=== PATIENT | female | born 1960 | race Caucasian/White ===

== ENCOUNTER → 2017-02-26 | Outpatient (CLI) | payer BC ==
[~2017-02-26] MED LIST: CHOL100027 PO; COEN30CA6 PO; DESV1TAB PO; HYDR12.56 PO; IBUP-1050 PO; LPT10 PO; LSN20 PO; NXM/40 PO; RIZA10TA18 PO; SNG10 PO; XNX25 PO
--- NOTE | 2017-02-26 07:14 | DIAGNOSTIC IMAGING REPORT ---
CT SCAN OF THE PARANASAL SINUSES CLINICAL HISTORY: Chronic sinusitis. COMPARISON STUDY: CT of the brain dated 05/12/2016. TECHNIQUE: High-resolution CT scan of the paranasal sinuses is performed. Images are reviewed in the axial, sagittal, and coronal planes. IV contrast was not administered for this examination. Examination is performed using the fusion protocol. A dose lowering technique was utilized adhering to the principles of ALARA. CT DOSE: 733.83 mGy.cm FINDINGS: Maxillary antra: Clear bilaterally. Anterior ethmoid sinuses: Mild mucosal thickening is seen on the right. Clear on the left. Posterior ethmoid sinuses: Clear. Sphenoid sinuses: Trace mucosal thickening is seen on the right. Clear on the left. Frontal sinuses: Mild mucosal thickening is seen on the right. Clear on the left. Ostiomeatal complexes: Patent bilaterally. Frontoethmoidal and sphenoethmoidal recesses: Patent bilaterally. Carotid arteries: The carotid arteries are protuberant but covered and without septal attachments. Ethmoid roofs: The ethmoid roofs are symmetric. Nasal turbinates: Normal in appearance. Nasal septum: There is minimal rightward deviation of the bony nasal septum. Optic nerves: Covered. Orbits: The bony orbits are intact. Orbital contents are normal in appearance. Calvarium: The imaged calvarium is normal in appearance Mastoid air cells: Well pneumatized. Brain parenchyma: Partially visualized brain parenchyma is within normal limits. IMPRESSION: Minimal paranasal sinus disease as above. Electronically signed by: Camilo Jarrell M.D. 02/26/2017 7:13 AM Dictated Date/Time: 02/26/2017 7:11 AM
== END | disposition home or self-care (01) ==
LOC: C.CTS 06:54
DX: J32.9 Chronic sinusitis, unspecified (principal)

== ENCOUNTER → 2017-03-26 | Outpatient (CLI) | payer BC ==
[~2017-03-26] MED LIST changes: +CETI10TA84 PO
--- NOTE | 2017-03-26 13:13 | Discharge Instructions ---
Discharge Instructions Procedure Procedure Date: Mar 26, 2017. Reason for visit: Left Distortion. Discharge Discharge Date: Mar 26, 2017. Discharge Diagnosis: post left breast stereotactic tomosynthesis guided biopsy Instructions Activity Recommendations: Additional Limitations (see below) Return to School/Work: no limitations Recommended Home Diet: No Limitations Provider Instructions: ACTIVITY RECOMMENDATIONS: * No lifting, pushing, pulling or exercising the affected side for three days. RETURN TO SCHOOL/WORK: * You may return to work/school after the procedure, but do not perform any strenuous activities for 24 to 48 hours. MEDICATIONS: * Tylenol (two 325 mg) every four to six hours if needed for mild pain (if not allergic to Tylenol). DIET: * Resume previous diet. SPECIAL CARE INSTRUCTIONS: * Keep biopsy site dry for 24 hours. May shower after 24 hours, but do not soak (bathe) incision. * May remove Tegaderm (plastic patch) tomorrow AFTER showering. * Leave the steri-strips on for one week. Allow the steri-strips to fall off by themselves. If not off after one week, you may remove them. You may place a Bandaid crosswise over the strips, if desired. * Apply ice 10 minutes on and 10 minutes off as needed. * Wear a bra at bedtime to sleep more comfortably for 2-3 days. * Your referring physician should have the results after approximately 5 to 7 business days. * Call for unusual bleeding, fever, drainage, etc or if you have any questions call [phone] during normal business hours or after hours call Dr Wallace, . FOLLOW UP VISIT: Follow-up with Referring Physician as scheduled. Allergies Coded Allergies: Adhesives (Verified Allergy, Unknown, SOME BANDAIDS CAUSE REDNESS/BLISTERS , 03/21/17) Erythromycin (Verified Allergy, Unknown, mouth ulcers, 05/06/15) Matty Phillips Recommendations: Call your doctor if: * Temperature above 101 degrees * Pain not relieved by pain medicine ordered * There is increased drainage or redness from any incision * You have any unanswered questions or concerns. Your Doctors Instructions noted above were prepared by provider Beverly Wallace. Patient Signature Section: Patient Instructions Signature Page Jose Witt Patient (or Guardian) Signature/Date: I have read and understand the instructions given to me by my caregivers. Caregiver/RN/Doctor Signature/Date: The above-named patient and/or guardian has received patient instructions on this date. + Original Patient Signature Page (only) stays with chart. Please make copy for patient.
--- NOTE | 2017-03-26 15:11 | MAMMOGRAPHY REPORT ---
UNILATERAL LEFT DIGITAL DIAGNOSTIC MAMMOGRAM TOMOSYNTHESIS: 03/26/2017 CLINICAL HISTORY: Status post stereotactic tomosynthesis guided biopsy of a small 4 mm nodular asymme try with associated architectural distortion and possible associated faint microcalcification in the lateral middle one third of the left breast. Please refer to report from left breast stereotactic tomosynthesis guided biopsy performed at the [facility] e time for full detail. IMPRESSION: POST PROCEDURE IMAGING FOR MARKER PLACEMENT Please refer to report from left breast stereotactic tomosynthesis guided biopsy performed at the [facility] e time for full detail. Approximately 10% of breast cancers are not detected with mammography. A negative mammographic report should not delay biopsy if a clinically suggestive mass is present. Beverly Wallace M.D. ay/:03/26/2017 13:20:01 Dairy Equipment Mechanic: Wilbert MORATAYA(R)(M), [facility] BI-RADS Code: Post Procedure Imaging For Marker Placement
--- NOTE | 2017-03-26 15:11 | MAMMOGRAPHY REPORT ---
STEREOTACTIC GUIDED BIOPSY LEFT BREAST: 03/26/2017 CLINICAL HISTORY: 56-year-old woman presents for stereotactic tomosynthesis guided biopsy of a small 4 mm nodular asymmetry with associated architectural distortion in the upper outer middle one third o f the left breast. COMPARISON: Comparison is made to exams dated: 03/18/2017 ultrasound, 03/18/2017 mammogram, 03/13/2017 mammogram, 11/17/2015 mammogram, 10/06/2014 mammogram, and 07/09/2013 mammogram - [facility] audie. PATIENT CONSENT: After explaining the risks, benefits and alternatives of the procedure to the patien t, informed consent was obtained both verbally and in writing. Specific risks include: Bleeding, inf ection, puncture of adjacent structure, pain, nontarget biopsy, sampling error, metal allergy and med ication reaction. PROCEDURE DESCRIPTION: A time-out was performed and the left breast was confirmed as the site of biop sy. The patient was placed prone on the stereotactic biopsy table and the breast was placed in CC fro m below compression. A deputy treasurer tomosynthesis image was obtained which redemonstrates the nodular asymme try and adjacent versus associated architectural distortion in question. This is amenable to stereot actic tomosynthesis guided biopsy. Utilizing computer automation, the needle was advanced to the sit e of the distortion. The skin was prepped with Betadine. 1% Lidocaine with and without epinipherine was administered as local anesthesia. A small skin incision was made. Through the incision, the need le was inserted to the depth determined by the computer. 10 samples were obtained using a [employer] 9-gauge vacuum-assisted biopsy device. A biopsy marker was placed at the site. A specimen radiogra ph was obtained to see if any of the very faint microcalcifications were identified and there are pos sible very phenic or calcifications evident within the core biopsy samples. There was no immediate complication. Hemostasis was achieved after several minutes of manual compress ion. The samples were sent to pathology in appropriately labeled containers. The patient left the epartment in satisfactory condition. Postprocedure CC and ML views of the left breast were obtained. There is a 1 cm hematoma, small air bubble and biopsy marker clip in the upper outer middle one third of the left breast, at the site of the previously observed nodular asymmetry and associated distortion. The distortion and asymmetry a re no longer identified, confirming adequate sampling. IMPRESSION: STEREOTACTIC GUIDED BIOPSY Status post left breast stereotactic tomosynthesis guided biopsy of a small 4 mm nodular asymmetry wi th associated versus adjacent architectural distortion in the upper outer middle one third of the lef t breast, with biopsy marker placed at the site. The patient will receive notification of the biopsy results from her referring physician. Beverly Wallace M.D. ay/:03/26/2017 14:08:23 Sales Support Administrator: Wilbert MORATAYA(Torito)(M), [facility]
== END | disposition home or self-care (01) ==
LOC: C.MAMM 12:20
PROVIDERS: ATTEND Family Medicine
DX: R92.0 Mammographic microcalcification found on diagnostic imaging of breast (principal); N60.92 Unspecified benign mammary dysplasia of left breast

== ENCOUNTER → 2017-04-12 | Day surgery (SDC) | payer BC ==
[2017-03-21 11:40] VITALS: Ht 171.5 cm; Wt 85.2 kg
[~2017-04-12] VITALS: Ht 171.5 cm; Wt 85.2 kg
[~2017-04-12] MED LIST changes: +ATROPINE SULFATE 0.1 MG/ML 5ML SYR IV PRN; +CEFAZOLIN 2000MG IV PUSH 10 ML IV SCH; +DEXAMETHASONE SOD INJ 4 MG/ML VIAL ONE; +EpHEDrine SULFATE INJ 50 MG/ML AMP IV PRN; +EpINEphrine INJ 1MG/ML AMP 1 MG/ML AMP ONE; +FENTANYL CITRATE INJ 50 MCG/1 ML 2 ML VIAL ONE; +LACTATED RINGER'S 1000ML 1,000 ML IV SCH; +LIDOCAINE 4% MPF SOAK 5 ML = 1 DOSE TOP ONE; +LIDOCAINE HCL 2% 2 ML VIAL (20MG/ML) ONE; +LIDOCAINE/EPINEPHRINE 1% INJ 50 ML VIAL ONE; +MIDAZOLAM HCL 1 MG/ML 2ML VIAL ONE; +ONDANSETRON INJ 2 MG/ML 2 ML VIAL IV PRN; +ONDANSETRON INJ 2 MG/ML 2 ML VIAL ONE; +OXYMETAZOLINE HCL 0.05% NA SPR 15 ML BTL PRN; +OXYMETAZOLINE HCL 0.05% NA SPR 15 ML BTL SCH; +PROPOFOL IV EMULSION 10 MG/ML 20 ML VIAL IV ONE
--- NOTE | 2017-04-12 13:22 | History and Physical: Surg Cnt ---
History & Physical Date Apr 12, 2017. Chief Complaint RIGHT CHRONIC SINUSITIS History of Present Illness The patient is a 56 year old female with complaints of RIGHT CHRONIC SINUSITIS DESPITE [employer]. Past Medical/Surgical History Medical Problems: (1) HTN (hypertension); GERD; EPISTAXIS Surgical Problems: (1) H/O: hysterectomy S/P BREAST BX, S/P DENTAL IMPLANTS, S/P JOLLY-EDEN SURGERY, S/P T&A; S/P MIAH Additional History Hepatic Disease: No Endocrine Disorder: No Kidney Disease: No Hypertension: No Heart Disease: No Bleeding Tendencies: No Infectious Diseases: No Allergies Coded Allergies: Adhesives (Verified Allergy, Unknown, SOME BANDAIDS CAUSE REDNESS/BLISTERS , 04/12/17) Erythromycin (Verified Allergy, Unknown, mouth ulcers, 04/12/17) Home Medications Scheduled Atorvastatin (Atorvastatin Calcium), 10 MG PO QAM Cetirizine (Zyrtec), 10 MG PO QAM Cholecalciferol (Vitamin D 1000 Unit), 1,000 INTER.UNIT PO QAM Coenzyme Q10 (Ubidecarenone) (Coq10), 30 MG PO DAILY Desvenlafaxine (Desvenlafaxine Er), 50 MG PO QAM Esomeprazole Magnesium (Nexium), 40 MG PO QAM Hydrochlorothiazide (Hctz), 12.5 MG PO QAM Lisinopril (Lisinopril), 20 MG PO QAM Montelukast Sod (Montelukast Sodium), 10 MG PO QAM Scheduled PRN Alprazolam (Alprazolam), 0.25 MG PO TID PRN for Anxiety Ibuprofen (Advil), 200-600 MG PO Q4H PRN for Pain Rizatriptan Benzoate (Maxalt), 10 MG PO UD PRN for Migraine Physical Examination Skin: warm/dry, no rash Eyes: normal inspection, EOMI, sclerae normal ENT: normal ENT inspection, pharynx normal Head: normocephalic, atraumatic Neck: supple, no adenopathy, trachea midline Respiratory/Chest: lungs clear, normal breath sounds, no respiratory distress Cardiovascular: regular rate, rhythm, no edema, no murmur Neurologic/Psych: no motor/sensory deficits, alert, normal reflexes, oriented x 3 Diagnosis RIGHT FRONTAL/ETHMOID CHRONIC SINUSITIS Plan of Treatment IMAGE GUIDED RIGHT FESS
--- NOTE | 2017-04-12 13:52 | [facility] Operative Report ---
Operative Report Operative Date Apr 12, 2017. Pre-Operative Diagnosis Right Frontal/Ethmoid chronic Sinusitis Post-Operative Diagnosis same as preop Procedure(s) Performed Image Guided Endoscopic Sinus Surgey, Right Frontal Sinusotomy, Right Anterior Ethmoidectomy Surgeon Dr. العراقي Quality Systems Engineer Surgeon(s) none Estimated Blood Loss 5ML Findings 1. VASCULAR LESION OF THE RIGHT LATERAL NASAL WALL 2. MILD MUCOSAL THICKENING R FRONTOETHMOIDAL RECESS Specimens none per surgeon I attest to the content of the Intraoperative Record and any orders documented therein. Any exceptions are noted below.
--- NOTE | 2017-04-12 13:54 | Discharge Instructions ---
Discharge Instructions Date of Service Apr 12, 2017. Admission Reason for Admission: Chronic Sinusitis Discharge Discharge Diagnosis / Problem: SAME Discharge Goals Goal(s): Therapeutic intervention Activity Recommendations Activity Limitations: as noted below 1. LIGHT ACTIVITY AND NO NOSE BLOWING FOR 2 WEEKS 2. NO DRIVING WHILE ON NORCO . Current Hospital Diet Patient's current hospital diet: Discharge Diet Recommended Diet: Regular Diet Procedures Procedures Performed: Image Guided Endoscopic Sinus Surgey, Right Frontal Sinusotomy, Right Anterior Ethmoidectomy Pending Studies Studies pending at discharge: no Medical Emergencies . Who to Call and When: Medical Emergencies: If at any time you feel your situation is an emergency, please call 911 immediately. . Non-Emergent Contact Non-Emergency issues call your: Surgeon . . "Provider Documentation" section prepared by Estuardo العراقي. . VTE Core Measure Inpt VTE Proph given/why not?: SCD's
[2017-04-12] MEDS: FENTANYL CITRATE INJ 50 MCG/1 ML 2 ML VIAL IV PRN ×2 (14:18→14:28)
--- NOTE | 2017-04-12 14:36 | OPERATIVE REPORT ---
DATE OF OPERATION: 04/12/2017 PREOPERATIVE DIAGNOSES: 1. History of recurrent epistaxis. 2. Right frontal and ethmoid chronic sinusitis. POSTOPERATIVE DIAGNOSES: 1. History of recurrent epistaxis. 2. Right frontal and ethmoid chronic sinusitis. PROCEDURE: 1. Image guided right frontal sinusotomy with balloon sinuplasty guidance. 2. Image guided right anterior ethmoidectomy. 3. Endoscopic control of right-sided epistaxis. SURGEON: Dr. العراقي. ANESTHESIA: General endotracheal. ESTIMATED BLOOD LOSS: 5 mL. FINDINGS: 1. Vascular lesion involving the right lateral nasal sidewall. 2. Mild mucosal thickening involving the right frontal ethmoidal recess. 3. Mild mucosal thickening involving the right frontal and ethmoid sinuses. SPECIMENS: None. COMPLICATIONS: None. INDICATIONS FOR THE PROCEDURE: The patient is a pleasant 56-year-old female with a history of recurrent epistaxis in the past. In addition, she has right frontal and periorbital headaches and pressure and pain. A posttreatment fusion CT scan of the sinuses was obtained and revealed that she is status post left [place]-Mah[place] surgery in the past. In addition, the patient has right frontal ethmoidal recess blockage with mild mucosal thickening involving the right frontal and ethmoid sinuses. She presents for the above-mentioned procedure on an outpatient elective basis. OPERATION AND FINDINGS: DETAILS OF PROCEDURE: After informed consent had been obtained from the patient, the patient was wheeled to the operating room and placed on the operating table in the supine position. Monitors were placed. After induction of general endotracheal anesthesia, the patient was prepped in the usual fashion for image guided sinus surgery. The Alekto fusion headset was placed over the forehead and was registered, calibrated and verified and used throughout the case. Lidocaine and epinephrine pledgets placed into the right nasal cavity. As the the pledget was then removed after allowing adequate time for anesthesia and vasoconstriction, 0 degree rigid endoscope was inserted and there was a vascular lesion involving the right lateral nasal sidewall. This was cauterized using suction Bovie electrocautery to prevent future epistaxis. The patient had a history of recurrent epistaxis in the past. A [place] elevator was used to medialize the middle turbinate. Using a curved frontal sinus suction and image guidance, the right frontal sinus was cannulated. The suction was then removed. A #6 frontal sinus balloon was then inserted and inflated to 12 atmospheres of pressure at 3 different locations to dilate the right frontal ethmoidal recess tract. A right anterior ethmoidectomy was then performed using powered instrumentation. The ethmoid cavity was suctioned. Merogel was then placed into the right ethmoid sinus. An orogastric tube was placed and the stomach was suctioned free of air and stomach contents. This marked the end of the case. The patient tolerated the procedure well. There were no apparent complications. The patient was extubated and transferred to recovery room in stable condition. I attest to the content of the Intraoperative Record and any orders documented therein. Any exception s are noted below.
[2017-04-12] MEDS: HYDROCODONE/ACETAMOPHEN 5/325MG TAB PO PRN ×2 (15:00→15:16)
[2017-04-12 15:31] VITALS: BP 162/94; PULSE 70; TEMP 36.7; O2SAT 100
--- NOTE | 2017-04-12 15:43 | Anesthesia Progress Nt - [facility] ---
Anesthesia Post Op Note Date & Time Apr 12, 2017 at 15:43 Vital Signs Pain Intensity: 2 Vital Signs Past 12 Hours Date Time Temp Pulse Resp B/P (MAP) Pulse Ox O2 Delivery O2 Flow Rate FiO2 04/12/17 15:31 36.7 70 16 162/94 (116) 100 Room Air 04/12/17 14:53 78 16 140/88 (105) 99 Room Air 04/12/17 14:48 36.6 71 16 139/88 99 Room Air 04/12/17 14:41 79 14 100 04/12/17 14:41 78 14 04/12/17 14:40 141/92 04/12/17 14:36 85 20 100 04/12/17 14:36 87 20 04/12/17 14:35 144/98 04/12/17 14:31 73 4 04/12/17 14:31 73 4 100 04/12/17 14:30 140/93 04/12/17 14:26 77 7 04/12/17 14:26 75 7 100 04/12/17 14:25 138/83 04/12/17 14:21 84 16 100 04/12/17 14:21 83 16 04/12/17 14:20 138/86 04/12/17 14:17 81 15 04/12/17 14:17 81 15 100 04/12/17 14:15 145/85 04/12/17 14:12 91 12 100 04/12/17 14:12 91 12 04/12/17 14:10 151/87 04/12/17 14:07 91 5 04/12/17 14:07 89 5 100 04/12/17 14:05 143/93 04/12/17 14:04 147/99 04/12/17 14:03 175/103 04/12/17 14:02 111 100 04/12/17 14:02 36.5 100 16 147/99 100 Humidified Oxygen 8 Mask 04/12/17 14:02 111 04/12/17 11:47 37.0 75 20 135/85 (102) 98 Room Air Notes Mental Status: alert / awake / arousable, participated in evaluation Pt Amnestic to Procedure: Yes Nausea / Vomiting: adequately controlled Pain: adequately controlled Airway Patency, RR, SpO2: stable & adequate BP & HR: stable & adequate Hydration State: stable & adequate Anesthetic Complications: no major complications apparent
== END | disposition home or self-care (01) ==
LOC: X.SURG 11:28
DX: R04.0 Epistaxis (principal); J32.9 Chronic sinusitis, unspecified; I10 Essential (primary) hypertension; Z88.1 Allergy status to other antibiotic agents; K21.9 Gastro-esophageal reflux disease without esophagitis; Z98.890 Other specified postprocedural states